=== PATIENT | female | born 1995 | race Caucasian/White ===

== ENCOUNTER 2021-03-19 10:58 | Emergency (ER) | payer MEDICAID ==
[~2021-03-19] VITALS: Ht 157.5 cm; Wt 94.3 kg
[2021-03-19 10:58] VITALS: BP 119/71
== END 2021-03-19 12:46 | disposition left against medical advice (07) ==
LOC: M ED 10:58
DX: Z53.21 Procedure and treatment not carried out due to patient leaving prior to being seen by health care provider (principal)

== ENCOUNTER 2021-11-15 01:26 | Emergency (ER) | payer MEDICAID, SELFPAY ==
[~2021-11-15] VITALS: Ht 154.9 cm; Wt 81.8 kg
[2021-11-15 01:44] VITALS: BP 134/69
[2021-11-15 04:48] LABS: URINE PREG TEST NEGATIVE (NEGATIVE)
[2021-11-15 04:54] LABS: AMORPHOUS SEDIMENT SMALL (NEGATIVE); APPEARANCE, URINE CLOUDY (CLEAR); BACTERIA, URINE AUTO NEGATIVE (NEGATIVE); BILIRUBIN, URINE AUTO NEGATIVE (NEGATIVE); BLOOD, URINE BLOOD NEGATIVE (NEGATIVE); COLOR, URINE YELLOW (YELLOW); GLUCOSE, URINE (UA) AUTO NEGATIVE (NEGATIVE); KETONE, URINE AUTO 1+ mg/dL (NEGATIVE); LEUKOCYTE ESTERASE, URINE AUTO NEGATIVE (NEGATIVE); MUCUS, URINE LARGE (NEGATIVE); NITRITE, URINE AUTO NEGATIVE (NEGATIVE); PROTEIN, URINE AUTO 1+ mg/dL (NEGATIVE); RBC, URINE AUTO 1 /HPF (0-3); SPECIFIC GRAVITY URINE AUTO 1.032 (1.002-1.035); SQUAMOUS EPITHELIAL CELL UR AU 5 /HPF (0-6); WBC, URINE AUTO 3 /HPF (0-3)
== END 2021-11-15 05:38 | disposition left against medical advice (07) ==
LOC: M ED 01:26
DX: T76.21XA Adult sexual abuse, suspected, initial encounter (principal); X99.1XXA Assault by knife, initial encounter; Y92.9 Unspecified place or not applicable; Y93.9 Activity, unspecified; Y99.9 Unspecified external cause status; Z53.9 Procedure and treatment not carried out, unspecified reason

== ENCOUNTER → 2023-06-30 | Outpatient (REF) | payer MEDICAID | LOC: M LAB REF 16:00 | PROVIDERS: ATTEND Physician Assistant Medical | DX: B34.9 Viral infection, unspecified (principal) ==

== ENCOUNTER 2024-08-01 14:50 | Emergency (ER) | payer MEDICAID, SELFPAY ==
[~2024-08-01] VITALS: Ht 154.9 cm; Wt 95.9 kg
[2024-08-01 15:18] LABS: BASO % 0.1 % (0.0-1.0); EOS # 0.1 10^3/uL (0.0-0.5); EOS % 0.5 % (0.0-3.0); HEMATOCRIT 43.1 % (36.0-47.0); HEMOGLOBIN 15.3 g/dl (12.0-15.5); LYMPH # 2.2 10^3/uL (1.5-5.0); LYMPH % 15.4 % (24.0-44.0); MEAN CORPUSCULAR HEMOGLOBIN 33.6 pg (27.0-33.0); MEAN CORPUSCULAR HGB CONC 35.5 g/dl (32.0-36.5); MEAN CORPUSCULAR VOLUME 94.7 fl (80.0-96.0); MONO % 6.7 % (2.0-8.0); NEUTROPHILS % 76.9 % (36.0-66.0); PLATELET COUNT, AUTOMATED 329 10^3/uL (150-450); RED BLOOD COUNT 4.55 10^6/uL (4.00-5.40); WHITE BLOOD COUNT 14.3 10^3/uL (4.0-10.0)
[2024-08-01 15:29] LABS: ERYTHROCYTE SEDIMENTATION RATE 62 mm/hr (0-20)
[2024-08-01] MEDS ORDERED: ISOVUE-370 76% 100ML VIAL As Ordered ONE (15:46)
[2024-08-01 16:02] LABS: HCG, SERUM QUALITATIVE NEGATIVE (NEGATIVE)
[2024-08-01] MEDS: AMPICILLIN SOD/SULBACTAM SOD 3 GM in D5W MINI-BAG PLUS 100 ML IV ONE (16:26)
[2024-08-01] MEDS: KETOROLAC 30 MG/ML 1ML VIAL IV ONE (16:26)
[2024-08-01] MEDS: BENZOCAINE 20% GEL 9GM TUBE (ANBESOL MAX STRENGTH) TOP ONE (17:15)
[2024-08-01] MEDS: LIDOCAINE W/EPINEPHRINE 1% 20ML VIAL SC ONE (17:15)
[2024-08-01] MEDS ORDERED: AMOX875T2 PO (17:42)
[2024-08-01 18:14] VITALS: BP 126/62; TEMP 98.6; O2SAT 98
== END 2024-08-01 18:14 | disposition home or self-care (01) ==
LOC: M ED 14:50
DX: K04.7 Periapical abscess without sinus (principal); L03.211 Cellulitis of face; F17.200 Nicotine dependence, unspecified, uncomplicated; Z79.2 Long term (current) use of antibiotics
CPT/HCPCS: 36415; 70487; 80047; 83605; 84703; 85025; 85652; 86140; 87040; 96365; 96366; 96375; 99284; J0295; J1100; J1885; Q9967